=== PATIENT | female | born 1980 | race Caucasian/White ===

== ENCOUNTER 2019-12-10 14:12 | Emergency (ER) | payer OTHER ==
[~2019-12-10] VITALS: Ht 162.6 cm; Wt 83.0 kg
[2019-12-10 14:22] VITALS: BP 122/75
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
== END 2019-12-10 15:47 | disposition home or self-care (01) ==
LOC: ED 15:41
DX: S16.1XXA Strain of muscle, fascia and tendon at neck level, initial encounter (principal); S29.012A Strain of muscle and tendon of back wall of thorax, initial encounter; G89.11 Acute pain due to trauma; V43.52XA Car driver injured in collision with other type car in traffic accident, initial encounter; Y93.89 Activity, other specified; Y92.488 Other paved roadways as the place of occurrence of the external cause; Y99.8 Other external cause status
CPT/HCPCS: 71046; 72125; 99284